=== PATIENT | male | born 1990 | race Two or more races ===

== ENCOUNTER 2017-09-21 11:22 | Emergency (ER) | payer OTHER ==
[~2017-09-21] VITALS: Ht 172.7 cm; Wt 64.9 kg
[2017-09-21 11:56] VITALS: BP 132/74
== END 2017-09-21 12:47 | disposition home or self-care (01) ==
LOC: ER 11:26
DX: L30.8 Other specified dermatitis (principal); B08.1 Molluscum contagiosum
CPT/HCPCS: A4606; Z7610